=== PATIENT | female | born 1965 | race Caucasian/White ===

== ENCOUNTER → 2017-01-26 | Outpatient (CLI) | payer OTHER ==
--- NOTE | 2017-01-26 13:58 | REP ---
RIGHT HIP, TWO VIEWS: HISTORY: Hip pain. There is no acute fracture or dislocation. The joint space is normal in appearance. IMPRESSION: There is no acute fracture or dislocation. Signed by Joaquim Michael MD 01/26/2017 02:18 P
== END ==
LOC: M WUC 13:17
PROVIDERS: ATTEND Physician Assistant
DX: M25.551 Pain in right hip (principal)

== ENCOUNTER → 2018-01-31 | Outpatient (REF) | payer OTHER ==
[2018-01-31 13:13] LABS: IRON (FE) 53 UG/DL (50-170); PERCENT SATURATION 16.2 % (13.2-45.0); TOTAL IRON BINDING CAPACITY 327 UG/DL (250-450)
== END ==
LOC: M LAB REF 12:12
DX: D50.9 Iron deficiency anemia, unspecified (principal)

== ENCOUNTER → 2018-11-07 | Outpatient (REF) | payer OTHER ==
[2018-11-07 16:59] LABS: PERCENT SATURATION 17.4 % (13.2-45.0)
== END ==
LOC: M LAB REF 16:27
PROVIDERS: ATTEND Internal Medicine
DX: D50.9 Iron deficiency anemia, unspecified (principal)

== ENCOUNTER 2019-01-22 08:21 | Day surgery (SDC) | payer OTHER ==
[~2019-01-22] VITALS: Ht 170.2 cm; Wt 68.0 kg
[~2019-01-22 08:21] MED LIST: ADDE20CA3 PO; EFFE75CA2 PO; NS 1,000 ML IV ONE; TRAZ1TAB10 PO
[2019-01-22] MEDS ORDERED: LIDOCAINE 2% INJ 100 MG/5 ML SDV (FOR ANES.) As Ordered ONE (08:49)
[2019-01-22] MEDS ORDERED: PROPOFOL 200 MG/20 ML VIAL As Ordered ONE (08:49)
[2019-01-22 10:25] VITALS: BP 145/97
--- NOTE | 2019-01-22 10:59 | ROOR ---
Patient Name: Xiomara Echevarria Procedure Date: 01/22/2019 9:23 AM Date of : 1965 Age: 53 Room: [facility] Gender: Female Note Status: Finalized Procedure: Colonoscopy Indications: Screening for colorectal malignant neoplasm Providers: Nicanor Matta MD Referring MD: ALBINA NEWSOME JR, MD Requesting Provider: Medicines: Monitored Anesthesia Care Complications: No immediate complications. Procedure: Pre-Anesthesia Assessment: - Prior to the procedure, a History and Physical was performed, and patient medications and allergies were reviewed. The patient is competent. The risks and benefits of the procedure and the sedation options and risks were discussed with the patient. All questions were answered and informed consent was obtained. Patient identification and proposed procedure were verified by the physician, the nurse and the anesthesiologist in the procedure room. Mental Status Examination: alert and oriented. Airway Examination: normal oropharyngeal airway and neck mobility. Respiratory Examination: clear to auscultation. CV Examination: normal. Prophylactic Antibiotics: The patient does not require prophylactic antibiotics. Prior Anticoagulants: The patient has taken no previous anticoagulant or antiplatelet agents. ASA Grade Assessment: II - A patient with mild systemic disease. After reviewing the risks and benefits, the patient was deemed in satisfactory condition to undergo the procedure. The anesthesia plan was to use monitored anesthesia care (MAC). Immediately prior to administration of medications, the patient was re-assessed for adequacy to receive sedatives. The heart rate, respiratory rate, oxygen saturations, blood pressure, adequacy of pulmonary ventilation, and response to care were monitored throughout the procedure. The physical status of the patient was re-assessed after the procedure. The Colonoscope was introduced through the anus and advanced to the terminal ileum, with identification of the appendiceal orifice and IC valve. The colonoscopy was performed without difficulty. The patient tolerated the procedure well. The quality of the bowel preparation was good. The terminal ileum, ileocecal valve, appendiceal orifice, and rectum were photographed. Scope insertion time was 4 minutes. Scope withdrawal time was 11 minutes. The total duration of the procedure was 16 minutes. Findings: The perianal and digital rectal examinations were normal. A 8 mm polyp was found in the ascending colon. The polyp was sessile. The polyp was removed with a cold snare. Resection and retrieval were complete. Verification of patient identification for the specimen was done by the physician and nurse using the patient's name, date and medical record number. Estimated blood loss was minimal. A 12 mm polyp was found in the rectum. The polyp was multi-lobulated and sessile. Polypectomy was attempted, initially using a cold snare. Polyp resection was incomplete with this device. This intervention then required a different device and polypectomy technique. The polyp was removed with a piecemeal technique using a hot biopsy forceps. Resection and retrieval were complete. Non-bleeding external and internal hemorrhoids were found during retroflexion. The hemorrhoids were medium-sized. Impression: - One 8 mm polyp in the ascending colon, removed with a cold snare. Resected and retrieved. - One 12 mm polyp in the rectum, removed piecemeal using a hot biopsy forceps. Resected and retrieved. - Non-bleeding external and internal hemorrhoids. Recommendation: - Patient has a contact number available for emergencies. The signs and symptoms of potential delayed complications were discussed with the patient. Return to normal activities tomorrow. Written discharge instructions were provided to the patient. - High fiber diet. - Continue present medications. - Await pathology results. - Based on the rectal polyp pathology, might require anal pap smear and Repeat flexible sigmoidoscopy/ anoscopy in 6 - 12 months. - Recommend hemorrhoid medication for 3 days. - Repeat colonoscopy in 3 - 5 years for surveillance based on pathology results. - Telephone GI clinic for pathology results in 2 weeks. - Return to primary care physician. Nicanor Matta MD Nicanor Matta MD 01/22/2019 10:59:06 AM Electronically signed by Nicanor Matta MD Number of Addenda: 0 Note Initiated On: 01/22/2019 9:23 AM Estimated Blood Loss: Estimated blood loss was minimal.
== END 2019-01-22 11:07 | disposition home or self-care (01) ==
LOC: M OPP 08:21
PROVIDERS: ATTEND Internal Medicine Gastroenterology
DX: Z12.11 Encounter for screening for malignant neoplasm of colon (principal); D12.2 Benign neoplasm of ascending colon; K62.1 Rectal polyp; K64.8 Other hemorrhoids; M54.89 Other dorsalgia; M54.2 Cervicalgia; F41.9 Anxiety disorder, unspecified; F32.9 Major depressive disorder, single episode, unspecified; F90.9 Attention-deficit hyperactivity disorder, unspecified type; Z79.899 Other long term (current) drug therapy

== ENCOUNTER → 2019-03-16 | Outpatient (CLI) | payer OTHER ==
[~2019-03-16] MED LIST changes: -NS 1,000 ML IV ONE
--- NOTE | 2019-03-16 09:42 | REP ---
Two-view chest: 03/16/2019. Indication: Bronchitis. Cough. Comparison: None. Findings: The lungs are clear. There is no pleural effusion or pneumothorax. The cardiomediastinal silhouette is unremarkable. Impression: No acute cardiopulmonary process. Electronically Signed by Aaron Salmon DO 03/16/2019 09:33 A
== END ==
LOC: M WUC 09:25
PROVIDERS: ATTEND Physician Assistant
DX: J20.9 Acute bronchitis, unspecified (principal)

== ENCOUNTER 2019-11-02 12:07 | Day surgery (SDC) | payer OTHER ==
[2019-11-02] MEDS ORDERED: propofoL 200 MG/20 ML VIAL ONE (13:04)
[2019-11-02] MEDS ORDERED: LIDOCAINE 2% 100MG/5ML SDV (FOR ANES.) ONE (13:04)
--- NOTE | 2019-11-25 11:34 | ROOR ---
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 Procedure: Pre-Anesthesia Assessment: - Prior to the procedure, a History and Physical was performed, and patient medications and allergies were reviewed. The patient is competent. The risks and benefits of the procedure and the sedation options and risks were discussed with the patient. All questions were answered and informed consent was obtained. Patient identification and proposed procedure were verified by the physician, the nurse and the anesthesiologist in the procedure room. Mental Status Examination: alert and oriented. Airway Examination: normal oropharyngeal airway and neck mobility. Respiratory Examination: clear to auscultation. CV Examination: normal. Prophylactic Antibiotics: The patient does not require prophylactic antibiotics. Prior Anticoagulants: The patient has taken no previous anticoagulant or antiplatelet agents. ASA Grade Assessment: II - A patient with mild systemic disease. After reviewing the risks and benefits, the patient was deemed in satisfactory condition to undergo the procedure. The anesthesia plan was to use monitored anesthesia care (MAC). Immediately prior to administration of medications, the patient was re-assessed for adequacy to receive sedatives. The heart rate, respiratory rate, oxygen saturations, blood pressure, adequacy of pulmonary ventilation, and response to care were monitored throughout the procedure. The physical status of the patient was re-assessed after the procedure. The Colonoscope was introduced through the anus and advanced to the left transverse colon. The flexible sigmoidoscopy was accomplished without difficulty. The patient tolerated the procedure well. The quality of the bowel preparation was adequate. Scope insertion time was 3 minutes. Scope withdrawal time was 9 minutes. The total duration of the procedure was 15 minutes. Findings: The perianal and digital rectal examinations were normal. Normal mucosa was found from rectum to transverse colon. There is no endoscopic evidence of inflammation, mass, polyps or scarring in the rectum. Multiple biopsies were obtained in the rectum with cold forceps for histology. Verification of patient identification for the specimen was done by the physician and nurse using the patient's name, date and medical record number. Estimated blood loss was minimal. Non-bleeding external and internal hemorrhoids were found during retroflexion. The hemorrhoids were medium-sized. Impression: - Normal mucosa from rectum to transverse colon. - Non-bleeding external and internal hemorrhoids. - Multiple biopsies were obtained in the rectum. Recommendation: - The patient will be observed post-procedure, until all discharge criteria are met. - Patient has a contact number available for emergencies. The signs and symptoms of potential delayed complications were discussed with the patient. Return to normal activities tomorrow. Written discharge instructions were provided to the patient. - High fiber diet. - Await pathology results. - Perform a colonoscopy in 1 year ( per protocol as per prior colonoscopy results. - Return to GI clinic in 1 year. - Return to primary care physician. Nicanor Matta MD 11/02/2019 1:27:18 PM Number of Addenda: 0 Note Initiated On: 11/02/2019 9:46 AM Estimated Blood Loss: Estimated blood loss was minimal.
== END 2019-11-02 13:50 | disposition home or self-care (01) ==
LOC: M SDC 12:07
PROVIDERS: ATTEND Internal Medicine Gastroenterology
DX: K64.8 Other hemorrhoids (principal); D12.8 Benign neoplasm of rectum; Z79.899 Other long term (current) drug therapy

== ENCOUNTER → 2019-11-10 | Outpatient (REF) | payer OTHER ==
[2019-11-10 13:27] LABS: PERCENT SATURATION 36.2 % (13.2-45.0)
== END ==
LOC: M LAB REF 09:02
PROVIDERS: ATTEND Internal Medicine
DX: D50.9 Iron deficiency anemia, unspecified (principal)

== ENCOUNTER → 2019-11-19 | Outpatient (REF) | payer OTHER | LOC: M LAB REF 11:39 | PROVIDERS: ATTEND Surgery | DX: D17.1 Benign lipomatous neoplasm of skin and subcutaneous tissue of trunk (principal) ==

== ENCOUNTER → 2020-04-19 | Outpatient (CLI) | payer OTHER ==
[2020-04-19 12:24] LABS: BASO # 0.1 10^3/uL (0.0-0.2); BASO % 1.3 % (0.0-1.0); EOS # 0.1 10^3/uL (0.0-0.5); HEMATOCRIT 37.7 % (36.0-47.0); HEMOGLOBIN 12.1 g/dl (12.0-15.5); LYMPH # 1.4 10^3/uL (1.5-5.0); LYMPH % 30.9 % (24.0-44.0); MEAN CORPUSCULAR HEMOGLOBIN 29.1 pg (27.0-33.0); MEAN CORPUSCULAR HGB CONC 32.1 g/dl (32.0-36.5); MEAN CORPUSCULAR VOLUME 90.6 fl (80.0-96.0); MONO # 0.4 10^3/uL (0.0-0.8); MONO % 9.3 % (0.0-5.0); NEUTROPHILS # 2.6 10^3/uL (1.5-8.5); NEUTROPHILS % 56.3 % (36.0-66.0); PLATELET COUNT, AUTOMATED 329 10^3/uL (150-450); RED BLOOD COUNT 4.16 10^6/uL (4.00-5.40); WHITE BLOOD COUNT 4.5 10^3/uL (4.0-10.0)
[2020-04-19 13:15] LABS: ALBUMIN 4.3 GM/DL (3.2-5.2); ALT/SGPT 20 U/L (12-78); BILIRUBIN,TOTAL 0.2 MG/DL (0.2-1.0); BLOOD UREA NITROGEN 15 MG/DL (7-18); CALCIUM LEVEL 9.9 MG/DL (8.5-10.1); CARBON DIOXIDE LEVEL 31 MEQ/L (21-32); CHLORIDE LEVEL 105 MEQ/L (98-107); CREATININE FOR GFR 0.89 MG/DL (0.55-1.30); FREE T4 0.96 NG/DL (0.76-1.46); GLOMERULAR FILTRATION RATE > 60.0 (>51); GLUCOSE, FASTING 100 MG/DL (70-100); IRON (FE) 166 UG/DL (50-170); PERCENT SATURATION 52.9 % (13.2-45.0); SODIUM LEVEL 140 MEQ/L (136-145); TOTAL IRON BINDING CAPACITY 314 UG/DL (250-450); TOTAL PROTEIN 7.5 GM/DL (6.4-8.2)
== END ==
LOC: M WUC 09:34
PROVIDERS: ATTEND Physician Assistant
DX: R53.83 Other fatigue (principal); J06.9 Acute upper respiratory infection, unspecified; Z20.828 Contact with and (suspected) exposure to other viral communicable diseases

== ENCOUNTER → 2020-11-15 | Outpatient (REF) | payer OTHER | LOC: M LAB REF 10:12 | PROVIDERS: ATTEND Internal Medicine | DX: M13.0 Polyarthritis, unspecified (principal) ==

== ENCOUNTER → 2020-12-01 | Outpatient (CLI) | payer OTHER ==
--- NOTE | 2020-12-01 17:21 | REP ---
INDICATION: RT ARM LUMP UPPER ? CYST VS SOLID COMPARISON: None TECHNIQUE: Directed B-mode ultrasound examination using linear high-frequency transducer. FINDINGS: Directed ultrasound examination of the bilateral upper extremities at the site of "palpable mass" demonstrates mild underlying soft tissue edema without discrete fluid collection, mass or further abnormality by sonographic evaluation. IMPRESSION: No significant abnormality by sonographic evaluation. <Electronically signed by Ty Pradhan > 12/01/20 [id number]
== END ==
LOC: M RAD 10:45
PROVIDERS: ATTEND Internal Medicine
DX: R22.31 Localized swelling, mass and lump, right upper limb (principal)

== ENCOUNTER → 2020-12-15 | Outpatient (CLI) | payer OTHER ==
--- NOTE | 2020-12-15 10:51 | REPMRS ---
Patient History The patient states she had a clinical breast exam in 2020. Patient is postmenopausal. Family history of unknown cancer in paternal uncle, unknown cancer in paternal uncle. Patient states she had a right breast lumpectomy in 2001 that was negative No breast complaints today Patient signed the MRS sheet 1st covid vaccine 06/10/20-right arm-Moderna 2nd covid vaccine 07/13/20-left arm Patient states she has gained 20lbs over the last 2 years Priors done @ [facility]on PACS Patient Identification Verified Digital Woman Screen Mammo: December 15, 2020 - Exam #: [id number] Bilateral CC and MLO view(s) were taken. Technologist: Natividad Walls, Technologist FINDINGS: The breast tissue is heterogeneously dense. This may lower the sensitivity of mammography. Screening. Digital screening (2D) mammography was performed bilaterally in the CC and MLO projections. Additionally, breast tomosynthesis (3D mammography) was performed bilaterally in the CC and MLO projections. Todays exam was compared to the prior exam/exams. By history, the patient has no complaints of a palpable breast abnormality or other significant breast complaints. The breasts are unchanged in size and shape.Once again, dense heterogenous fibroglandular elements are seen bilaterally in a stable appearing pattern but to such a degree that the sensitivity of the mammogram in detecting cancer is decreased. There are no opal-soft tissue densities or spiculated masses. There is no internal architectural distortion. Once again, stable benign appearing calcifications are seen.There are no suspicious opal-calcific clusters. Skin thickening or nipple retraction is not present. IMPRESSION: BI-RADS Category 2- Benign Findings. There is no evidence of malignant alteration of the breasts. Followup examination recommended in one year. The Volpara volumetric breast density category is C, the breasts are heterogenously dense which may obscure small masses. This mammogram was read with the assistance of [employer],an FDA approved computer aided detection system for mammography. The lifetime Tyrer-Cuzick score is 8.7 % Due to the density of the breasts or Tyrer Cuzick score of 20% or greater, MRI/whole breast screening ultrasound is warranted. Negative x-ray reports should not delay surgical consultation if a dominant or clinically suspicious mass is present. Not all breast cancers can be identified by mammography. Therefore, we recommend that you continue to perform regular breast self-examination and physical examination and then promptly contact your physician of any concerns or changes. Adenosis and dense breasts may obscure an underlying neoplasm. Assessment: BI-RADS/ACR category 2 mammogram. Benign Findings. Recommendation Routine screening mammogram of both breasts in 1 year. Electronically Signed By: Hieu Eaton DO 12/15/20 [id number]
== END ==
LOC: M WHC 09:36
PROVIDERS: ATTEND Obstetrics & Gynecology
DX: Z12.31 Encounter for screening mammogram for malignant neoplasm of breast (principal)

== ENCOUNTER → 2021-02-02 | Outpatient (CLI) | payer OTHER ==
[2021-02-02 10:19] LABS: BASO # 0.1 10^3/uL (0.0-0.2); BASO % 0.9 % (0.0-1.0); EOS # 0.1 10^3/uL (0.0-0.5); EOS % 2.2 % (0.0-3.0); HEMATOCRIT 38.3 % (36.0-47.0); HEMOGLOBIN 12.3 g/dl (12.0-15.5); LYMPH % 16.3 % (24.0-44.0); MEAN CORPUSCULAR HGB CONC 32.1 g/dl (32.0-36.5); MEAN CORPUSCULAR VOLUME 90.3 fl (80.0-96.0); MONO # 0.7 10^3/uL (0.0-0.8); MONO % 10.6 % (2.0-8.0); NEUTROPHILS # 4.5 10^3/uL (1.5-8.5); NEUTROPHILS % 69.7 % (36.0-66.0); PLATELET COUNT, AUTOMATED 320 10^3/uL (150-450); RED BLOOD COUNT 4.24 10^6/uL (4.00-5.40); WHITE BLOOD COUNT 6.4 10^3/uL (4.0-10.0)
[2021-02-02 10:47] LABS: ERYTHROCYTE SEDIMENTATION RATE 21 mm/hr (0-30)
[2021-02-02 10:59] LABS: C REACTIVE PROTEIN QUANTITATIV 1.37 MG/DL (0.00-0.30); RHEUMATOID FACTOR QUANT < 10.0 IU/ML (<15.0)
== END ==
LOC: M PLALAB 08:51
PROVIDERS: ATTEND Orthopaedic Surgery
DX: M25.511 Pain in right shoulder (principal)

== ENCOUNTER → 2021-06-08 | Outpatient (CLI) | payer OTHER ==
[~2021-06-08] MED LIST changes: +GNP250TA9 PO; +[UNRECOGNIZED DRUG - OTHER] PO
== END ==
LOC: M LABSMTC 09:48
PROVIDERS: ATTEND Anesthesiology
DX: Z01.818 Encounter for other preprocedural examination (principal); Z11.52 Encounter for screening for COVID-19

== ENCOUNTER 2021-06-13 08:49 | Day surgery (SDC) | payer OTHER ==
[~2021-06-13] VITALS: Ht 172.7 cm; Wt 69.3 kg
[~2021-06-13 08:49] MED LIST changes: +LIDOCAINE 2% 100MG/5ML SDV (FOR ANES.) As Ordered ONE; +NS 1,000 ML IV ONE; +propofoL 200 MG/20 ML VIAL As Ordered ONE
[2021-06-13 10:30] VITALS: BP 114/75
== END 2021-06-13 10:42 | disposition home or self-care (01) ==
LOC: M OPP 08:49
PROVIDERS: ATTEND Internal Medicine Gastroenterology
DX: Z12.11 Encounter for screening for malignant neoplasm of colon (principal); Z86.010 Personal history of colon polyps; K64.8 Other hemorrhoids; Z98.890 Other specified postprocedural states; Z79.899 Other long term (current) drug therapy

== ENCOUNTER → 2021-09-12 | Outpatient (REF) | payer OTHER ==
[~2021-09-12] MED LIST changes: -LIDOCAINE 2% 100MG/5ML SDV (FOR ANES.) As Ordered ONE; -NS 1,000 ML IV ONE; -propofoL 200 MG/20 ML VIAL As Ordered ONE
[2021-09-12 16:49] LABS: APPEARANCE, URINE CLEAR (CLEAR); BACTERIA, URINE AUTO NEGATIVE (NEGATIVE); BILIRUBIN, URINE AUTO NEGATIVE (NEGATIVE); BLOOD, URINE BLOOD NEGATIVE (NEGATIVE); COLOR, URINE YELLOW (YELLOW); GLUCOSE, URINE (UA) AUTO NEGATIVE (NEGATIVE); KETONE, URINE AUTO TRACE mg/dL (NEGATIVE); LEUKOCYTE ESTERASE, URINE AUTO TRACE (NEGATIVE); MUCUS, URINE SMALL (NEGATIVE); NITRITE, URINE AUTO NEGATIVE (NEGATIVE); PROTEIN, URINE AUTO NEGATIVE (NEGATIVE); RBC, URINE AUTO 0 /HPF (0-3); SQUAMOUS EPITHELIAL CELL UR AU 1 /HPF (0-6); UROBILINOGEN, URINE AUTO 0.2 mg/dL (0.0-2.0); WBC, URINE AUTO 2 /HPF (0-3)
[2021-09-12 16:50] LABS: INR 0.95; PARTIAL THROMBOPLASTIN TIME 37.2 SECONDS (25.9-37.0); PROTHROMBIN TIME 13.1 SECONDS (12.7-14.5)
== END ==
LOC: M LAB REF 16:23
PROVIDERS: ATTEND Internal Medicine
DX: Z01.818 Encounter for other preprocedural examination (principal)

== ENCOUNTER → 2021-09-14 | Outpatient (CLI) | payer OTHER | LOC: M WUC 08:13 | PROVIDERS: ATTEND Internal Medicine | DX: J45.909 Unspecified asthma, uncomplicated (principal) ==

== ENCOUNTER → 2021-09-20 | Outpatient (CLI) | payer OTHER | LOC: M LABSMTC 09:28 | PROVIDERS: ATTEND Orthopaedic Surgery | DX: Z01.812 Encounter for preprocedural laboratory examination (principal); Z11.52 Encounter for screening for COVID-19; M48.02 Spinal stenosis, cervical region; G95.9 Disease of spinal cord, unspecified; M50.30 Other cervical disc degeneration, unspecified cervical region; G89.29 Other chronic pain ==

== ENCOUNTER → 2021-12-18 | Outpatient (CLI) | payer OTHER | LOC: M WHC 08:09 | PROVIDERS: ATTEND Obstetrics & Gynecology | DX: Z12.31 Encounter for screening mammogram for malignant neoplasm of breast (principal); Z13.820 Encounter for screening for osteoporosis; M85.852 Other specified disorders of bone density and structure, left thigh ==

== ENCOUNTER → 2022-11-07 | Outpatient (CLI) | payer OTHER ==
[2022-11-07 12:19] LABS: BASO # 0.1 10^3/uL (0.0-0.2); EOS % 0.8 % (0.0-3.0); HEMATOCRIT 37.7 % (36.0-47.0); HEMOGLOBIN 12.4 g/dl (12.0-15.5); LYMPH # 1.1 10^3/uL (1.5-5.0); LYMPH % 22.2 % (24.0-44.0); MEAN CORPUSCULAR HEMOGLOBIN 29.4 pg (27.0-33.0); MEAN CORPUSCULAR HGB CONC 32.9 g/dl (32.0-36.5); MEAN CORPUSCULAR VOLUME 89.3 fl (80.0-96.0); MONO # 0.5 10^3/uL (0.0-0.8); MONO % 9.8 % (2.0-8.0); NEUTROPHILS # 3.3 10^3/uL (1.5-8.5); PLATELET COUNT, AUTOMATED 345 10^3/uL (150-450); RED BLOOD COUNT 4.22 10^6/uL (4.00-5.40)
[2022-11-07 12:49] LABS: BLOOD UREA NITROGEN 13 MG/DL (9-23); CALCIUM LEVEL 9.9 MG/DL (8.5-10.1); CARBON DIOXIDE LEVEL 30 MMOL/L (20-31); CHLORIDE LEVEL 103 MMOL/L (98-107); CREATININE FOR GFR 0.84 MG/DL (0.55-1.30); GLOMERULAR FILTRATION RATE > 60.0 (>51); GLUCOSE, FASTING 94 MG/DL (60-100); POTASSIUM SERUM 4.4 MMOL/L (3.5-5.1); SODIUM LEVEL 139 MMOL/L (136-145)
== END ==
LOC: M EKG 11:24
PROVIDERS: ATTEND Podiatrist
DX: M25.571 Pain in right ankle and joints of right foot (principal)

== ENCOUNTER 2022-11-16 08:11 | Day surgery (SDC) | payer OTHER ==
[~2022-11-16] VITALS: Ht 172.7 cm; Wt 66.7 kg
[~2022-11-16 08:11] MED LIST changes: +ceFAZolin SOD 2 GM in IV 1 EA IV ONE
[2022-11-16] MEDS ORDERED: LR 1,000 ML IV SCH ×2 (08:20→12:15)
[2022-11-16] MEDS ORDERED: LIDOCAINE 2% 100MG/5ML SDV (FOR ANES.) As Ordered ONE (09:02)
[2022-11-16] MEDS ORDERED: propofoL 200 MG/20 ML VIAL As Ordered ONE (09:02)
[2022-11-16] MEDS ORDERED: ONDANSETRON 4MG 2ML VIAL As Ordered ONE (09:26)
[2022-11-16] MEDS ORDERED: fentaNYL 100 MCG/2 ML INJECTION As Ordered ONE (09:28)
[2022-11-16] MEDS ORDERED: GENTAMICIN SULF 80MG/2ML VIAL As Ordered ONE (10:04)
[2022-11-16] MEDS ORDERED: LIDOCAINE 2% MDV 20ML VIAL As Ordered ONE (10:04)
[2022-11-16] MEDS ORDERED: MIDAZOLAM INJ 2MG/2ML VIAL As Ordered ONE (10:05)
[2022-11-16] MEDS ORDERED: ePHEDrine SULFATE 25 MG/5 ML(5MG/ML) SYRINGE As Ordered ONE ×2 (10:35→11:04)
[2022-11-16] MEDS ORDERED: ONDANSETRON 4MG 2ML VIAL IV PRN (12:15)
[2022-11-16] MEDS ORDERED: oxyCODONE 5MG TAB PO PRN (12:15)
[2022-11-16] MEDS ORDERED: MORPHINE 2 MG/ML 1ML VIAL IV PRN (12:15)
[2022-11-16] MEDS ORDERED: METOCLOPRAMIDE INJ 10MG/2ML VIAL IV PRN (12:15)
[2022-11-16 13:10] VITALS: BP 138/72; TEMP 97.7; O2SAT 100
[2022-11-17] MEDS ORDERED: ACETAMINOPHEN 1000MG 100ML IV BAG As Ordered ONE (10:46)
== END 2022-11-16 13:20 | disposition home or self-care (01) ==
LOC: M SDC 08:11
PROVIDERS: ATTEND Podiatrist
DX: S93.411A Sprain of calcaneofibular ligament of right ankle, initial encounter (principal); X58.XXXA Exposure to other specified factors, initial encounter; Y92.89 Other specified places as the place of occurrence of the external cause; R06.83 Snoring
CPT/HCPCS: 27698; 76000; 97116; J0665; J0690; J1100; J1580; J2250; J2405; J3010

== ENCOUNTER → 2023-06-17 | Outpatient (CLI) | payer OTHER ==
[~2023-06-17] MED LIST changes: -ceFAZolin SOD 2 GM in IV 1 EA IV ONE
== END ==
LOC: M SOG 07:50
PROVIDERS: ATTEND Physician Assistant
DX: M25.551 Pain in right hip (principal); M25.552 Pain in left hip; M47.896 Other spondylosis, lumbar region; M46.96 Unspecified inflammatory spondylopathy, lumbar region

== ENCOUNTER → 2023-07-08 | Outpatient (CLI) | payer OTHER | LOC: M SOG 08:19 | PROVIDERS: ATTEND Physician Assistant | DX: M25.561 Pain in right knee (principal); M25.562 Pain in left knee ==

== ENCOUNTER → 2023-07-13 | Outpatient (CLI) | payer OTHER | LOC: M RAD 15:11 | PROVIDERS: ATTEND Physician Assistant | DX: M54.59 Other low back pain (principal) ==

== ENCOUNTER → 2023-10-07 | Outpatient (CLI) | payer OTHER ==
[~2023-10-07] MED LIST changes: +ADDE30CA3 PO; +CELE0.09 PO; +GABA-282 PO
== END ==
LOC: M EKG 09:17
PROVIDERS: ATTEND Anesthesiology
DX: Z01.818 Encounter for other preprocedural examination (principal)

== ENCOUNTER 2023-10-16 12:59 | Day surgery (SDC) | payer OTHER ==
[~2023-10-16] VITALS: Ht 172.7 cm; Wt 70.1 kg
[~2023-10-16 12:59] MED LIST changes: +LR 1,000 ML IV SCH
[2023-10-16] MEDS ORDERED: LR 1,000 ML IV SCH ×2 (13:05→16:55)
[2023-10-16 14:15] LABS: HEMATOCRIT 36.2 % (36.0-47.0); HEMOGLOBIN 12.1 g/dl (12.0-15.5); MEAN CORPUSCULAR HEMOGLOBIN 29.4 pg (27.0-33.0); MEAN CORPUSCULAR HGB CONC 33.4 g/dl (32.0-36.5); MEAN CORPUSCULAR VOLUME 87.9 fl (80.0-96.0); PLATELET COUNT, AUTOMATED 335 10^3/uL (150-450); RED BLOOD COUNT 4.12 10^6/uL (4.00-5.40); WHITE BLOOD COUNT 5.9 10^3/uL (4.0-10.0)
[2023-10-16] MEDS ORDERED: fentaNYL 100 MCG/2 ML INJECTION As Ordered ONE (14:46)
[2023-10-16] MEDS ORDERED: MIDAZOLAM INJ 2MG/2ML VIAL As Ordered ONE (14:46)
[2023-10-16] MEDS ORDERED: propofoL 200 MG/20 ML VIAL As Ordered ONE (14:47)
[2023-10-16] MEDS ORDERED: KETOROLAC 60MG 2ML VIAL As Ordered ONE (14:52)
[2023-10-16] MEDS ORDERED: LIDOCAINE 2% 100MG/5ML SDV (FOR ANES.) As Ordered ONE (14:52)
[2023-10-16] MEDS ORDERED: ONDANSETRON 4MG 2ML VIAL As Ordered ONE (14:52)
[2023-10-16] MEDS: ceFAZolin SOD 2 GM in IV 1 EA IV ONE (15:36)
[2023-10-16] MEDS ORDERED: SUCCINYLCHOLINE 100MG/5ML SYRINGE As Ordered ONE (15:40)
[2023-10-16] MEDS ORDERED: ACETAMINOPHEN 1000MG 100ML IV BAG As Ordered ONE (15:45)
[2023-10-16] MEDS ORDERED: ONDANSETRON 4MG 2ML VIAL IV PRN (16:15)
[2023-10-16] MEDS ORDERED: fentaNYL 100 MCG/2 ML INJECTION IV PRN (16:15)
[2023-10-16] MEDS: LIDOCAINE W/EPINEPHRINE 1% 20ML VIAL As Ordered ONE (16:15)
[2023-10-16] MEDS ORDERED: oxyCODONE 5MG TAB PO PRN (16:15)
[2023-10-16] MEDS ORDERED: CEPH25SS PO (16:25)
[2023-10-16] MEDS ORDERED: CEPH250T PO (16:29)
[2023-10-16] MEDS ORDERED: PERCOCET 5MG/325MG TAB PO PRN (16:55)
[2023-10-16] MEDS: CEPHALEXIN 500 MG CAP PO ONE (17:10)
[2023-10-16 17:55] VITALS: BP 152/79; TEMP 97.7; O2SAT 100
[2023-10-16] MEDS ORDERED: IBUPROFEN 800 MG TAB PO SCH (21:00)
== END 2023-10-16 18:15 | disposition home or self-care (01) ==
LOC: M SDC 12:59
PROVIDERS: ATTEND Obstetrics & Gynecology
DX: N39.3 Stress incontinence (female) (male) (principal); F41.9 Anxiety disorder, unspecified; F32.A Depression, unspecified; Z79.899 Other long term (current) drug therapy; Z90.49 Acquired absence of other specified parts of digestive tract
CPT/HCPCS: 36415; 57288; 85027; 86850; 86900; 86901; C1771; J0131; J0330; J0690; J1100; J1885; J2250; J2405; J3010

== ENCOUNTER → 2023-12-23 | Outpatient (CLI) | payer OTHER ==
[~2023-12-23] MED LIST changes: +CEPH250T PO; +CEPH25SS PO; +GABA-1172 PO; -GABA-282 PO; -LR 1,000 ML IV SCH
== END ==
LOC: M WHC 08:50
PROVIDERS: ATTEND Obstetrics & Gynecology
DX: Z12.31 Encounter for screening mammogram for malignant neoplasm of breast (principal); M81.0 Age-related osteoporosis without current pathological fracture

== ENCOUNTER → 2024-05-12 | Outpatient (CLI) | payer OTHER | LOC: M WUC 13:30 | PROVIDERS: ATTEND Physician Assistant | DX: R05.9 Cough, unspecified (principal); R06.02 Shortness of breath ==

== ENCOUNTER → 2024-12-11 | Outpatient (REF) | payer OTHER ==
[2024-12-11 15:09] LABS: VITAMIN B12 LEVEL 502 PG/ML (211-911)
== END ==
LOC: M LAB REF 12:05
PROVIDERS: ATTEND Internal Medicine
DX: N94.10 Unspecified dyspareunia (principal); R20.2 Paresthesia of skin

== ENCOUNTER → 2024-12-23 | Outpatient (CLI) | payer OTHER | LOC: M WHC 07:15 | PROVIDERS: ATTEND Obstetrics & Gynecology | DX: Z12.31 Encounter for screening mammogram for malignant neoplasm of breast (principal); R92.333 Mammographic heterogeneous density, bilateral breasts ==

== ENCOUNTER → 2025-01-02 | Outpatient (CLI) | payer OTHER | LOC: M RAD 08:40 | PROVIDERS: ATTEND Nurse Practitioner | DX: M54.12 Radiculopathy, cervical region (principal); G89.29 Other chronic pain; M54.2 Cervicalgia; Z98.1 Arthrodesis status; M50.30 Other cervical disc degeneration, unspecified cervical region ==